=== PATIENT | male | born 1990 | race Caucasian/White ===

== ENCOUNTER 2017-04-02 02:49 | Emergency (ER) | payer BC, OTHER ==
[~2017-04-02] VITALS: Ht 172.7 cm; Wt 80.3 kg
[2017-04-02] MEDS ORDERED: VICODIN 5-3001 EACH (03:01)
[2017-04-02 03:46] LABS: ABSOLUTE NEUTROPHILS 4.5 thou/uL (1.4-8.2); BASOPHILS 0.6 % (0.0-2.0); EOSINOPHILS 2.5 % (0.0-3.0); HEMATOCRIT 42.8 % (42.0-52.0); HEMOGLOBIN 14.8 gm/dL (14.0-18.0); LYMPHOCYTES 33.8 % (24.0-44.0); MCH 30.2 pg (26.0-34.0); MCHC 34.6 g/dL (28.0-37.0); MCV 87.1 fL (80.0-100.0); PLATELET COUNT 241 thou/uL (150-400); POLYS 57.1 % (36.0-66.0); RBC 4.91 mil/uL (4.50-6.00); RDW 12.6 % (10.5-14.5); WBC 7.9 thou/uL (4.0-11.0)
[2017-04-02 04:00] LABS: CALCIUM 9.2 mg/dL (8.5-10.1); CREATININE 0.8 mg/dL (0.7-1.3); POTASSIUM 3.9 mmol/L (3.5-5.1)
[2017-04-02] MEDS ORDERED: COMPAZINE10 MG PO (05:24)
== END 2017-04-02 06:09 | disposition home or self-care (01) ==
LOC: ER 02:49
PROVIDERS: Emergency Medicine
DX: R51 Headache (principal); R11.0 Nausea